=== PATIENT | male | born 1940 | race Caucasian/White ===

== ENCOUNTER 2017-01-02 12:11 | Emergency (ER) | payer OTHER, MEDICARE ==
[~2017-01-02] VITALS: Ht 177.8 cm; Wt 86.2 kg
--- NOTE | 2017-01-02 12:40 | ED SKIN/ALLERGY COMPLAINT ---
History of Present Illness General Chief Complaint: Skin Rash/ Abcess Stated Complaint: "BOIL"? ON RIGHT CHEEK, REFERRED BY Source: patient Exam Limitations: no limitations Vital Signs & Intake/Output Vital Signs & Intake/Output Vital Signs Date Time Temp Pulse Resp B/P B/P Pulse O2 O2 Flow FiO2 Mean Ox Delivery Rate 01/02 1217 98.1 66 20 167/86 97 Room Air Allergies Coded Allergies: NO KNOWN ALLERGIES (04/05/12) Reconcile Medications Albuterol Sulfate (Proair Hfa) 90 MCG HFA.AER.AD 2 PUF INH Q4-6 PRN PRN SHORTNESS OF BREATH (Reported) Aspirin (Aspirin*) 81 MG TAB.CHEW 1 TAB PO DAILY HEART HEALTH (Reported) Budesonide/Formoterol Fumarate (Symbicort 160-4.5 Mcg Inhaler) 160 MCG-4.5 MCG/ ACTUATION HFA.AER.AD 2 PUF INH BID SHORTNESS OF BREATH (Reported) Cetirizine HCl (Zyrtec) 10 MG TABLET 1 TAB PO DAILY ALLERGIES (Reported) Esomeprazole Magnesium (Nexium 24HR) 22.3 MG CAPSULE.DR 1 CAP PO DAILY GI ( Reported) Fenofibrate Nanocrystallized (Fenofibrate) 48 MG TABLET 1 TAB PO DAILY CHOLESTEROL (Reported) Lovastatin 40 MG TABLET 1 TAB PO DAILY CHOLESTEROL (Reported) with food Multivitamin (Daily Multiple Vitamin) 1 EACH TABLET 1 TAB PO DAILY VITAMIN SUPPORT (Reported) Sertraline HCl 100 MG TABLET 0.5 TAB PO DAILY MENTAL HEALTH (Reported) Triage Note: PT C/O "BOIL" ON RIGHT CHEEK X 4 DAYS. STATES USING HOT COMPRESSES WITHOUT RELIEF Triage Nurses Notes Reviewed? yes Duration: day(s):, constant, continues in ED Severity: severe Location: face HPI: Patient presents for evaluation of a boil on his right cheek that began gradually about one week ago. Patient states symptoms are getting worse. At one point the area began to drain and he treated it with hydrogen peroxide. He denies any associated fever or cold symptoms. Past History Travel History Traveled to [place] past 21 day No Medical History Any Pertinent Medical History? see below for history Cardiovascular: hyperlipidemia Respiratory: asthma Surgical History Surgical History: non-contributory Psychosocial History What is your primary language [place] Tobacco Use: Never used ETOH Use: denies use Illicit Drug Use: denies illicit drug use Family History Hx Contributory? No Review of Systems Review of Systems Constitutional: Reports: no symptoms. EENTM: Reports: no symptoms. Respiratory: Reports: no symptoms. Cardiovascular: Reports: no symptoms. GI: Reports: no symptoms. Genitourinary: Reports: no symptoms. Musculoskeletal: Reports: no symptoms. Skin: Reports: see HPI. Neurological/Psychological: Reports: no symptoms. Hematologic/Endocrine: Reports: no symptoms. Immunologic/Allergic: Reports: no symptoms. All Other Systems: Reviewed and Negative Physical Exam Physical Exam General Appearance: SEE BELOW Comments: Gen.: Well-nourished, well-developed, no acute respiratory distress. Head: Normocephalic, atraumatic. Eyes: Normal inspection bilaterally Ears: Normal inspection bilaterally Nose: Normal inspection Throat/mouth : Moist mucosa Neck: Supple, full range of motion, no goiter Face: Soft tissue swelling and erythema over the right cheek, no appreciable fluctuance, central opening present without drainage at this time Lungs: Quiet respirations Back: Normal range of motion Extremities: Normal range of motion grossly Neurologic: Cranial nerves grossly intact, speech is clear Skin: warm and dry Psychiatric: Calm, cooperative, no apparent delusions or hallucinations Progress Differential Diagnosis: abscess/cellulitis Plan of Care: Orders Procedure Date/time Status US-SOFT TISSUES OF HEAD & NECK 01/02 1239 Active Comments: 01/02/2017 1:39:58 PM I have updated Edvin on his ultrasound report. Although there is a fluid collection, the abscess has begun to drain spontaneously and the patient wishes to try warm compresses and antibiotics hold off on incision and drainage at this point. Departure Departure Disposition: HOME OR SELF CARE Condition: Stable Clinical Impression Primary Impression: Facial abscess Referrals: WILLIAM WAGNER,IVA Snell (PCP/Family) Additional Instructions: Augmentin as prescribed. Warm compresses 3 times daily. Departure Forms: Customer Survey General Discharge Information Prescriptions: Current Visit Scripts Augmentin (Augmentin 500-125 Tablet) 1 TAB PO TID #21 TAB
[2017-01-02] MEDS ORDERED: NEXIUM 24HR22.3 MG PO (12:54)
[2017-01-02] MEDS ORDERED: ZYRTEC10 M3 PO (12:54)
[2017-01-02] MEDS ORDERED: LOVASTATIN40 M1 PO (12:55)
[2017-01-02] MEDS ORDERED: SERTRALINE HCL100 MG PO (12:55)
[2017-01-02] MEDS ORDERED: FENOFIBRATE48 M1 PO (12:55)
[2017-01-02] MEDS ORDERED: ASPIRIN81 M4 PO (12:56)
[2017-01-02] MEDS ORDERED: PROAIR HFA8.5 GM INH (12:56)
[2017-01-02] MEDS ORDERED: SYMBICORT 16010.2 GM INH (12:57)
[2017-01-02] MEDS ORDERED: DAILY MULTIPLE1 EACH PO (12:57)
[2017-01-02] MEDS ORDERED: AUGMENTIN 500-1 EACH PO (13:39)
[2017-01-02 13:51] VITALS: BP 152/70
--- NOTE | 2017-01-02 17:04 | ULTRASOUND REPORT ---
EXAMINATION: US SOFT TISSUE CHEEK CLINICAL INFORMATION: Swelling and redness. Presumptive diagnosis of abscess. COMPARISON: None TECHNIQUE: Linear transducer strickland-scale and color Doppler examination with attention to the region of the swelling and redness over the right cheek was performed. Real-time assessment by the reading radiologist was performed. FINDINGS: In region of the patient's clinical concern, a complex hypoechoic 1.4 x 0.9 x 1.1 cm collection is seen with increased sound through transmission and peripheral hyperemia with color Doppler imaging. There is a small tract extending from this collection to the overlying skin. Findings raise the suspicion of an abscess cavity. IMPRESSION: Small superficial complex fluid collection is seen in the right cheek. In the clinical setting provided, this is most suspicious for a abscess cavity or superinfection of a sebaceous cyst. Findings discussed with Dr. Edgard Saleh 01/02/2017, 1:30 PM.
== END 2017-01-02 13:52 ==
LOC: ERH 12:11
DX: L02.01 Cutaneous abscess of face (principal)

== ENCOUNTER 2018-03-22 16:32 | Emergency (ER) | payer OTHER, MEDICARE ==
[~2018-03-22] VITALS: Ht 177.8 cm; Wt 85.3 kg
[~2018-03-22 16:32] MED LIST: ASPIRIN81 M4 PO; AUGMENTIN 500-1 EACH PO; DAILY MULTIPLE1 EACH PO; FENOFIBRATE48 M1 PO; LOVASTATIN40 M1 PO; NEXIUM 24HR22.3 MG PO; PROAIR HFA8.5 GM INH; SERTRALINE HCL100 MG PO; SYMBICORT 16010.2 GM INH; ZYRTEC10 M3 PO
--- NOTE | 2018-03-22 18:09 | CT SCAN REPORT ---
EXAMINATION: CT HEAD WITHOUT CONTRAST CT CERVICAL SPINE WITHOUT CONTRAST CT MAXILLOFACIAL BONES WITHOUT CONTRAST CLINICAL INFORMATION: Fall. COMPARISON: Head CT from 02/21/2016. TECHNIQUE: Contiguous axial imaging was performed from the skullbase to vertex without intravenous administration of contrast. Multidetector helical imaging was performed through the cervical spine and maxillofacial bones. DLP: 1770 mGy-cm. FINDINGS: HEAD: There is no evidence of acute intracranial hemorrhage or territorial infarction. No abnormal mass effect or midline shift is seen. Hodge to white matter differentiation is well preserved. No extra-axial fluid collections are identified. There is diffuse parenchymal volume loss. Mild chronic white matter microangiopathic changes are noted. The osseous structures and soft tissues are normal. The mastoid air cells are well aerated. Extensive degenerative changes noted at the atlantoaxial articulation. MAXILLOFACIAL BONES: There is extensive mucosal disease in the frontoethmoid sinuses which are subtotally opacified. Aerosolized secretions and small fluid level in the right sphenoid sinus. The left sphenoid sinus is opacified. There is moderate left maxillary sinus disease. Mild to moderate fluid level in the right maxillary antrum. There are suspected polyps in the nasal passages as well. Some secretions within the paranasal sinuses are high in attenuation, likely due to increased proteinaceous content. There are age-indeterminate minimally displaced bilateral nasal bone fractures. Mild paranasal soft tissue swelling noted. No additional maxillofacial bone fractures are seen. No soft tissue hematoma or contusion is seen. The posterior wall of the right sphenoid sinus is thinned, otherwise no osseous erosive changes are visible. The mandible is intact. There are mild degenerative changes of the TMJs. The zygomatic arches appear normal. There is a sigmoidal-shaped nasal septal deviation. A 2.4 x 1 cm polyp protrudes from the posterior left nasal passage into the nasopharynx. The orbits are normal. CERVICAL SPINE: No acute fracture is identified in the cervical spine. There is significant disc space narrowing with endplate spurring at C5-C6 and C6-C7. There is ankylosis of the C2-C3 facet joint. A mild degenerative anterior subluxation is noted at C4-C5. Multilevel facet arthropathy an foraminal narrowing visible. Asymmetric soft tissue in the left vallecula may be due to lingular tonsillar tissue but is otherwise incompletely characterized and indeterminate. The paraspinal soft tissues are normal. The superior mediastinum is unremarkable. Biapical pleural plaques with calcification visible. The imaged lungs are clear. IMPRESSION: 1. No acute intracranial pathology. 2. No evidence of acute cervical spine traumatic injury. Multilevel cervical spondylosis. 3. Age-indeterminate mildly displaced nasal bone fractures with mild paranasal soft tissue swelling. 4. 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 5. Mild asymmetric soft tissue protruding from the tongue base into the left vallecula may be due to lingular tonsillar tissue, however, a soft tissue lesion cannot be ruled out. Recommend correlation with direct visual inspection.
--- NOTE | 2018-03-22 18:32 | ED GENERAL ADULT ---
History of Present Illness General Chief Complaint: Fall Stated Complaint: FALL Source: patient Exam Limitations: no limitations Allergies Coded Allergies: NO KNOWN ALLERGIES (04/05/12) Reconcile Medications Albuterol Sulfate (Proair Hfa) 90 MCG HFA.AER.AD 2 PUF INH Q4-6 PRN PRN SHORTNESS OF BREATH (Reported) Aspirin (Aspirin*) 81 MG TAB.CHEW 1 TAB PO DAILY HEART HEALTH (Reported) Augmentin (Augmentin 500-125 Tablet) 500 MG-125 MG TABLET 1 TAB PO TID INFECTION Budesonide/Formoterol Fumarate (Symbicort 160-4.5 Mcg Inhaler) 160 MCG-4.5 MCG/ ACTUATION HFA.AER.AD 2 PUF INH BID SHORTNESS OF BREATH (Reported) Cetirizine HCl (Zyrtec) 10 MG TABLET 1 TAB PO DAILY ALLERGIES (Reported) Esomeprazole Magnesium (Nexium 24HR) 22.3 MG CAPSULE.DR 1 CAP PO DAILY GI ( Reported) Fenofibrate Nanocrystallized (Fenofibrate) 48 MG TABLET 1 TAB PO DAILY CHOLESTEROL (Reported) Lovastatin 40 MG TABLET 1 TAB PO DAILY CHOLESTEROL (Reported) with food Multivitamin (Daily Multiple Vitamin) 1 EACH TABLET 1 TAB PO DAILY VITAMIN SUPPORT (Reported) Sertraline HCl 100 MG TABLET 0.5 TAB PO DAILY MENTAL HEALTH (Reported) Triage Note: 77 YO MALE TO TRIAGE FOR EVAL S/P TRIP AND FALL. UNSURE OF LAST TETANUS. PT STATES HE WAS HOLDING A LEAF BLOWER AND TRIED TO USE IT TO BREAK HIS FALL, STATES HE WENT OVER A WALL AND LANDED ON THE CEMENT ON HIS FACE. NOTED WITH ABRASIONS TO FACE AND L HAND. NO ACTIVE BLEEDING. DENIES LOC, STATES TAKES DAILY ASA. Triage Nurses Notes Reviewed? yes Onset: Abrupt Duration: minute(s): Timing: single episode today HPI: 77-year-old male with a history of asthma and hyperlipidemia presenting status post mechanical fall just prior to arrival. Patient reports that he was working in his yard when he tripped and fell forward, struck his face on cement ground. Denies loss of consciousness. Denies headache, visual changes, nausea, vomiting. Denies anticoagulations, takes an 81 mg aspirin daily. Presents with multiple abrasions to his face. Unknown last tetanus. (Krystal Zuñiga) Vital Signs & Intake/Output Vital Signs & Intake/Output Vital Signs Date Time Temp Pulse Resp B/P B/P Pulse O2 O2 Flow FiO2 Mean Ox Delivery Rate 03/22 2012 98.6 74 20 148/78 99 Room Air 03/22 1648 98.4 74 18 166/78 98 Room Air (Therese WAGNER,Edgard Colmenares) Past History Travel History Traveled to [place] past 21 day No Medical History Any Pertinent Medical History? see below for history Cardiovascular: hyperlipidemia Respiratory: asthma Surgical History Surgical History: non-contributory Psychosocial History What is your primary language R[place] Tobacco Use: Never used Family History Hx Contributory? No (Krystal Zuñiga) Review of Systems Review of Systems Constitutional: Reports: no symptoms. EENTM: Reports: no symptoms. Respiratory: Reports: no symptoms. Cardiovascular: Reports: no symptoms. GI: Reports: no symptoms. Genitourinary: Reports: no symptoms. Musculoskeletal: Reports: see HPI. Skin: Reports: see HPI. Neurological/Psychological: Reports: no symptoms. Hematologic/Endocrine: Reports: no symptoms. Immunologic/Allergic: Reports: no symptoms. All Other Systems: Reviewed and Negative (Krystal Zuñiga) Physical Exam Physical Exam General Appearance: well developed/nourished, no apparent distress, alert, awake , comfortable Comments: Primary Survey: Airway: intact Breathing: breath sounds equal bilaterally Circulation: 2+ distal pulses Disability: a&ox3, pupils equally round and reactive Secondary Survey: Head: Normocephalic, atraumatic, nontender, no skull depressions/deformities Ears: No hemotympanum Nose: No epistaxis or septal hematomas Throat/mouth : No oral lacerations, no missing teeth Face: No abrasions/lacerations, no crepitus or deformities Neck: No midline TTP, unrestricted c-spine ROM Heart: Regular rate and rhythm Lungs: Clear to auscultation bilaterally with normal air entry Chest: Nontender, no flail segments Abdomen: Soft, nontender, nondistended, normal bowel sounds Pelvis: Non-tender and stable to AP and lateral compression Extremities: Edema and tenderness to palpation of the right wrist, right wrist has unrestricted range of motion, all other joints have unrestricted range of motion, all extremities are neurovascularly intact Neurologic: Cranial nerves grossly intact, no motor/sensory deficitis, cerebellalr function intact Skin: warm and dry, multiple facial abrasions Back: No midline TTP of C-spine, T-spine, or L-spine Rectal exam: deferred Core Measures ACS in differential dx? No CVA/TIA Diagnosis: No Sepsis Present: No Sepsis Focused Exam Completed? No (Krystal Zuñiga) Progress Differential Diagnoses I considered the following diagnoses in my evaluation of the patient: [Abrasions versus facial fracture versus ICH versus cranial fracture versus vertebral fracture versus wrist fracture] Plan of Care: ct SCAN IMPRESSION: 1. No acute intracranial pathology. 2. No evidence of acute cervical spine traumatic injury. Multilevel cervical spondylosis. 3. Age-indeterminate mildly displaced nasal bone fractures with mild paranasal soft tissue swelling. 4. 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 5. Mild asymmetric soft tissue protruding from the tongue base into the left vallecula may be due to lingular tonsillar tissue, however, a soft tissue lesion cannot be ruled out. Recommend correlation with direct visual inspection. Patient informed of all the above incidental findings. States that he is followed by Dr. Pascual from ENT and has an appointment in 2 weeks to see him. He will follow-up for further evaluation of the above findings. Patient was counseled on the concern for malignancy of the soft tissue mass, he expresses understanding and will follow up for evaluation. Wrist x-ray unremarkable for fracture. Facial abrasions were cleansed and dressed with bacitracin. Counseled on wound care. Tetanus updated. Given strict return precautions. Initial ED EKG: none (Krystal Zuñiga) Plan of Care: ct SCAN IMPRESSION: 1. No acute intracranial pathology. 2. No evidence of acute cervical spine traumatic injury. Multilevel cervical spondylosis. 3. Age-indeterminate mildly displaced nasal bone fractures with mild paranasal soft tissue swelling. 4. 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 5. Mild asymmetric soft tissue protruding from the tongue base into the left vallecula may be due to lingular tonsillar tissue, however, a soft tissue lesion cannot be ruled out. Recommend correlation with direct visual inspection. Patient informed of all the above incidental findings. States that he is followed by Dr. Pascual from ENT and has an appointment in 2 weeks to see him. He will follow-up for further evaluation of the above findings. Patient was counseled on the concern for malignancy of the soft tissue mass, he expresses understanding and will follow up for evaluation. Wrist x-ray unremarkable for fracture. Facial abrasions were cleansed and dressed with bacitracin. Counseled on wound care. Tetanus updated. Given strict return precautions. (Therese WAGNER,Edgard Colmenares) Departure Departure Disposition: HOME OR SELF CARE Condition: Stable Clinical Impression Primary Impression: Facial abrasion Secondary Impressions: Facial contusion, Fall Referrals: Ankur WAGNER,Modesto Sánchez MD,Mariano Snell (PCP/Family) Additional Instructions: Keep the abrasions clean and dry. Follow-up with your ENT provider as scheduled. Return to the emergency department for any new or worsening symptoms. Departure Forms: Customer Survey General Discharge Information (Krystal Zuñiga) PA/ELECTRICAL WORKER Co-Sign Statement Statement: ED Attending supervision documentation- [X] 03/22/2018 6:43:02 PM I saw and evaluated the patient. I have also reviewed all the pertinent lab results and diagnostic results. I agree with the findings and the plan of care as documented in the PA's/ELECTRICAL WORKER's documentation. Patient presents for injury sustained status post fall. Physical examination reveals facial abrasions and dorsal ecchymoses and soft tissue swelling of the right wrist with tenderness over the distal radius and ulna. An x-ray will be obtained. [] I have reviewed the ED Record and agree with the PA's/ELECTRICAL WORKER's documentation. [] Additions or exceptions (if any) to the PAs/ELECTRICAL WORKER's note and plan are summarized below: [] (Therese WAGNER,Edgard Colmenares) Critical Care Note Critical Care Note Critical Care Time: non-applicable (Krystal Zuñiga)
--- NOTE | 2018-03-22 20:05 | RADIOLOGY REPORT ---
EXAMINATION: XR WRIST, RIGHT CLINICAL INFORMATION: Trauma COMPARISON: None TECHNIQUE: PA, lateral, and oblique views of the right wrist. FINDINGS: There is considerable soft tissue swelling about the right wrist. However, no fracture or dislocation is detected. An incidental cyst is seen in the carpal scaphoid bone. IMPRESSION: Soft tissue swelling. No fracture.
[2018-03-22 20:12] VITALS: BP 148/78
== END 2018-03-22 20:13 ==
LOC: ERH 16:32
DX: S00.81XA Abrasion of other part of head, initial encounter (principal); S00.83XA Contusion of other part of head, initial encounter; J45.909 Unspecified asthma, uncomplicated; Z79.82 Long term (current) use of aspirin; W01.0XXA Fall on same level from slipping, tripping and stumbling without subsequent striking against object, initial encounter; Y93.H9 Activity, other involving exterior property and land maintenance, building and construction
CPT/HCPCS: 73110-RT; 90471; 90714